=== PATIENT | female | born 1995 | race Two or more races ===

== ENCOUNTER 2024-07-05 01:32 | Emergency (ER) | payer BC ==
[~2024-07-05] VITALS: Ht 170.2 cm; Wt 69.9 kg
[2024-07-05] MEDS ORDERED: LORAZEPAM 1 MG TABLET ONE (03:12)
[2024-07-05] MEDS: LORAZEPAM 1 MG TABLET PO ONE (03:15)
[2024-07-05 03:56] VITALS: BP 154/99; TEMP 98; O2SAT 98
== END 2024-07-05 03:56 | disposition home or self-care (01) ==
LOC: ER 01:36
DX: F41.0 Panic disorder [episodic paroxysmal anxiety] (principal); F41.9 Anxiety disorder, unspecified; R07.89 Other chest pain; R00.2 Palpitations